=== PATIENT | female | born 1995 | race Asian ===

== ENCOUNTER 2024-09-23 22:01 | Emergency (ER) | payer MEDICAID ==
[~2024-09-23] VITALS: Ht 154.9 cm; Wt 66.0 kg
[2024-09-23 22:11] VITALS: BP 120/75; PULSE 77; RESP 14; TEMP 36.7; O2SAT 100; O2SAT 99
[2024-09-23] MEDS ORDERED: ALBU18HF2 IH (22:51)
== END 2024-09-23 23:09 | disposition home or self-care (01) ==
LOC: ER 22:01
DX: R05.9 Cough, unspecified (principal)
CPT/HCPCS: 71045; 99283